=== PATIENT | female | born 1995 ===

== ENCOUNTER 2018-01-14 15:23 | Emergency (ER) | payer OTHER ==
[2018-01-14 15:35] VITALS: BP 113/71
--- NOTE | 2018-01-14 15:39 | UC ---
Throat Pain/Nasal Anselmo HPI - HPI Summary HPI Summary: 4 days of sore throat, no cough, subj. fever, chills. denies n/v, rash. no sick contacts - History of Current Complaint Chief Complaint: UCRespiratory Stated Complaint: SORE THROAT Time Seen by Provider: 01/14/18 15:38 Hx Obtained From: Patient Hx Last Menstrual Period: 3 WEEKS AGO ?: No - bcp Severity: Mild Pain Intensity: 3 Pain Scale Used: 0-10 Numeric Associated Signs & Symptoms: Positive: Negative - Allergies/Home Medications Allergies/Adverse Reactions: Allergies Allergy/AdvReac Type Severity Reaction Status Date / Time No Known Allergies Allergy Verified 01/14/18 15:35 Home Medications: Home Medications Control* 1 tab PO DAILY 01/14/18 [History Confirmed 01/14/18] Ibuprofen TAB* [Advil TAB*] 400 mg PO PRN 01/14/18 [History] PMH/Surg Hx/FS Hx/Imm Hx Previously Healthy: Yes - Surgical History Surgical History: None - Social History Alcohol Use: Occasionally Substance Use Type: Marijuana Smoking Status (MU): Never Smoked Tobacco Review of Systems All Other Systems Reviewed And Are Negative: Yes Constitutional: Positive: Fever, Chills Skin: Positive: Negative Eyes: Negative: Drainage Respiratory: Positive: Negative Cardiovascular: Positive: Negative Gastrointestinal: Positive: Negative Is Patient Immunocompromised?: No Physical Exam Triage Information Reviewed: Yes Appearance: Well-Appearing Vital Signs: Initial Vital Signs Temp 97.6 F 01/14/18 15:31 Pulse 104 01/14/18 15:31 Resp 16 01/14/18 15:31 BP 113/71 01/14/18 15:31 Pulse Ox 100 01/14/18 15:31 Vital Signs Reviewed: Yes ENT: Positive: Pharyngeal erythema, Tonsillar swelling, Tonsillar exudate, Uvula midline. Negative: Sinus tenderness Neck: Positive: Tenderness @ - L ant. cervical Respiratory Exam: Normal Cardiovascular Exam: Normal Skin Exam: Normal Throat Pain/Nasal Course/Dx - Course Assessment/Plan: Pharyngitis w/ exudates but neg rapid strep - Differential Dx/Diagnosis Differential Diagnosis/HQI/PQRI: Influenza, Pharyngitis, Tonsillitis Provider Diagnoses: Pharyngitis Discharge - Sign-Out/Discharge Documenting (check all that apply): Patient Departure All imaging exams completed and their final reports reviewed: No Studies - Discharge Plan Condition: Good Disposition: HOME Prescriptions: Penicillin VK TAB* [Penicillin VK 250 mg Tab*] 500 mg PO BID #20 tab Patient Education Materials: Pharyngitis (ED) Referrals: No Primary Care Phys,NOPCP [Primary Care Provider] - Additional Instructions: please return if not improving - Billing Disposition and Condition Condition: GOOD Disposition: Home
== END 2018-01-14 16:25 | disposition home or self-care (01) ==
LOC: UCEAST 15:23
DX: J02.9 Acute pharyngitis, unspecified (principal)
CPT/HCPCS: 87651; 99202; G0463